=== PATIENT | female | born 1960 | race Caucasian/White ===

== ENCOUNTER 2016-07-30 13:46 | Emergency (ER) | payer BC ==
[~2016-07-30] VITALS: Ht 157.5 cm; Wt 47.0 kg
[2016-07-30 13:50] VITALS: Ht 157.5 cm; Wt 47.0 kg
[2016-07-30] MEDS ORDERED: ACETAMINOPHEN 500 MG TAB PO STA (14:30)
[2016-07-30 15:07] LABS: ADD SCAN DIFF NO
[2016-07-30 15:11] LABS: BASOPHILS % 0.3 % (0.0-2.0); EOSINOPHILS # 0.1 10^3/ul (0.0-0.5); EOSINOPHILS % 0.6 % (0.0-7.0); HEMATOCRIT 43.4 % (37.0-47.0); HEMOGLOBIN 14.6 g/dl (12.0-16.0); LYMPHOCYTES # 2.7 10^3/ul (0.8-2.9); LYMPHOCYTES % 18.4 % (15.0-51.0); MEAN CORPUSCULAR HEMOGLOBIN 29.9 pg (29.0-33.0); MEAN CORPUSCULAR HGB CONC 33.6 g/dl (32.0-37.0); MEAN CORPUSCULAR VOLUME 88.9 fl (82.0-101.0); MEAN PLATELET VOLUME 9.5 fl (7.4-10.4); MONOCYTE # 0.9 10^3/ul (0.3-0.9); MONOCYTES % 6.3 % (0.0-11.0); NEUTROPHIL # 10.8 10^3/ul (1.6-7.5); NEUTROPHILS % 74.1 % (39.0-77.0); PLATELET COUNT 277 10^3/UL (140-415); RED BLOOD COUNT 4.88 10^6/ul (4.20-5.40); RED CELL DISTRIBUTION WIDTH 12.7 % (11.5-14.5); WHITE BLOOD COUNT 14.5 10^3/ul (4.8-10.8)
[2016-07-30 15:23] LABS: ADD UMIC YES; URINE BILIRUBIN (Dip) NEGATIVE (NEGATIVE); URINE BLOOD (Dip) 2+ (NEGATIVE); URINE COLOR LT. YELLOW (YELLOW); URINE GLUCOSE (Dip) NEGATIVE (NEGATIVE); URINE KETONES (Dip) NEGATIVE (NEGATIVE); URINE LEUKOCYTE ESTERASE (Dip) NEGATIVE (NEGATIVE); URINE NITRITE (Dip) NEGATIVE (NEGATIVE); URINE TOTAL PROTEIN (Dip) NEGATIVE (NEGATIVE); URINE UROBILINOGEN (Dip) 0.2 E.U./dL (0.1-1.0)
[2016-07-30 15:36] LABS: ALBUMIN 4.8 g/dl (3.3-4.9); ALBUMIN/GLOBULIN RATIO 1.17; BILIRUBIN,INDIRECT 0.6 mg/dl (0-1.1); BILIRUBIN,TOTAL 0.6 mg/dl (0.2-1.3); CALCIUM 10.3 mg/dl (8.4-10.2); CREATININE 0.62 mg/dl (0.44-1.00); TOTAL PROTEIN 8.9 g/dl (6.1-8.1)
[2016-07-30 15:37] LABS: SQUAMOUS EPITHELIAL CELL,UR RARE; URINE RBCS 0-2 /HPF (0)
[2016-07-30 15:38] LABS: MUCUS,URINE FEW
[2016-07-30] MEDS ORDERED: IOHEXOL 300MG/ML 150 ML BTL ONE (16:25)
[2016-07-30] MEDS ORDERED: SOD CHLORIDE 0.9% 100 ML ONE (16:25)
--- NOTE | 2016-07-30 17:04 | RADRPT ---
PROCEDURE: CT Abdomen and Pelvis with contrast. CLINICAL INDICATION: Abdominal pain TECHNIQUE: CT scan of the abdomen and pelvis with contrast was performed on a multidetector high-r esolution CT scanner. Coronal and sagittal reformatted images were obtained from the axial source im ages. Images were reviewed on a high-resolution PACS workstation. 80 cc of Isovue 300 iodinated cont rast was administered intravenously without reported complication. The total exam CTDI equals 5 mGy and the total exam DLP equals 249 mGy-cm. One or more of the following dose reduction techniques w ere used: Automated exposure control, Adjustment of the mA and/or kV according to patient size, and/ or use of iterative reconstruction technique. COMPARISON: None. FINDINGS: The lung bases are clear. No suspicious hepatic mass identified. The portal vein is patent. Gallbladder wall thickening is s een. No evidence of pancreatic ductal dilatation. The spleen and adrenals are unremarkable. Sub-c entimeter low density lesions within the kidneys bilaterally are too small to characterize but possi etienne small renal cysts. No hydronephrosis. No obstructing renal stone. No bowel obstruction. Normal-caliber appendix. Descending colonic wall thickening with pericolonic i nflammatory stranding. There is mild adjacent ascites without well-defined drainable rim-enhancing f luid collection. No significant retroperitoneal lymphadenopathy or evidence of pneumoperitoneum. Calcifications in the region of the anterior uterine body may be due to postoperative change or smal l calcified fibroids. Cystic structures are seen expanding the bilateral S1 foramen which may be related to prominent julisa neural cysts. IMPRESSION: Acute descending colitis. No drainable abscess or pneumoperitoneum. No evidence of bowel obstruction. Normal-caliber appendix. Nonspecific gallbladder wall thickening. If warranted, consider ultrasound for further characteriza tion RPTAT: AA .Jose Gutierrez MD, MD Date Time Electronically viewed and signed by .Jose Gutierrez MD, on 07/30/2016 17:04 .T/
[2016-07-30] MEDS ORDERED: DICLOFENAC SODIUM 37.5 MG/ML VIAL IV STA (17:08)
[2016-07-30] MEDS ORDERED: CIPROFLOXACIN 400MG/D5W 200 ML IVPB ONE (17:30)
[2016-07-30] MEDS ORDERED: metroNIDAZOLE 500 MG/NS (PMX) 100 ML IVPB ONE (17:30)
[2016-07-30] MEDS ORDERED: METR500T PO (17:49)
[2016-07-30] MEDS ORDERED: CIPR500T4 PO (17:49)
[2016-07-30] MEDS ORDERED: ACET500C5 PO (17:49)
--- NOTE | 2016-07-30 17:58 | ERD ---
ER Documentation Chief Complaint Date/Time DATE: 07/30/16 TIME: 17:56 Chief Complaint LT SIDE ABD PAIN X2 DAYS HPI This 55-year-old female sent by primary doctor for 2 day history of pain in the left lower quadrant with possible fevers. She denies dysuria, vomiting, nausea. She denies any history of surgeries previous similar issues. She is having normal bowel movements ROS All systems reviewed and are negative except as per history of present illness. Medications Home Meds Active Scripts Acetaminophen* (Tylophen*) 500 Mg Capsule, 1 CAP PO Q6H Y for PAIN AND OR ELEVATED TEMP, #15 CAP Prov:DRIK BARRIOS MD 07/30/16 Metronidazole* (Flagyl*) 500 Mg Tablet, 500 MG PO TID for 7 Days, TAB Prov:DIRK BARRIOS MD 07/30/16 Ciprofloxacin Hcl* (Ciprofloxacin Hcl*) 500 Mg Tablet, 500 MG PO BID for 7 Days , TAB Prov:DIRK BARRIOS MD 07/30/16 Allergies Allergies: Coded Allergies: No Known Allergy (Unverified , 07/30/16) PMhx/Soc Hx Miscellaneous Medical Probl: Yes (mono) Hx Alcohol Use: No Hx Substance Use: No Hx Tobacco Use: No Smoking Status: Never smoker Physical Exam Vitals Vital Signs Date Time Temp Pulse Resp B/P Pulse Ox O2 Delivery O2 Flow Rate FiO2 07/30/16 13:50 97.1 98 16 109/66 98 Physical Exam Const: [] Alert, [id number]. Head: Atraumatic Eyes: Normal Conjunctiva ENT: Normal External Ears, Nose and Mouth. Neck: Full range of motion..~ No meningismus. Resp: Clear to auscultation bilaterally Cardio: Regular rate and rhythm, no murmurs Abd: Soft, tender in the left mid quadrant abdomen without rebound. There is no tenderness at McBurney's point no Tai sign., non distended. Normal bowel sounds Skin: No petechiae or rashes Back: No midline or flank tenderness Ext: No cyanosis, or edema Neur: Awake and alert Psych: Normal Mood and Affect Result Diagram: 07/30/16 1500 07/30/16 1500 Results 24 hrs Laboratory Tests Test 07/30/16 15:00 White Blood Count 14.510^3/ul Red Blood Count 4.8810^6/ul Hemoglobin 14.6g/dl Hematocrit 43.4% Mean Corpuscular Volume 88.9fl Mean Corpuscular Hemoglobin 29.9pg Mean Corpuscular Hemoglobin Concent 33.6g/dl Red Cell Distribution Width 12.7% Platelet Count 73697^3/UL Mean Platelet Volume 9.5fl Neutrophils % 74.1% Lymphocytes % 18.4% Monocytes % 6.3% Eosinophils % 0.6% Basophils % 0.3% Nucleated Red Blood Cells % 0.0/100WBC Neutrophils # 10.810^3/ul Lymphocytes # 2.710^3/ul Monocytes # 0.910^3/ul Eosinophils # 0.110^3/ul Basophils # 0.010^3/ul Nucleated Red Blood Cells # 0.010^3/ul Urine Color LT. YELLOW Urine Clarity CLEAR Urine pH 5.0 Urine Specific Bryan >=1.030 Urine Ketones NEGATIVE Urine Nitrite NEGATIVE Urine Bilirubin NEGATIVE Urine Urobilinogen 0.2 E.U./dL Urine Leukocyte Esterase NEGATIVE Urine Microscopic RBC 0-2/HPF Urine Microscopic WBC 0-2/HPF Urine Squamous Epithelial Cells RARE Urine Mucus FEW Urine Hemoglobin 2+ Urine Glucose NEGATIVE% Urine Total Protein NEGATIVE Sodium Level 137mmol/L Potassium Level 4.0mmol/L Chloride Level 100mmol/L Carbon Dioxide Level 26mmol/L Anion Gap 15 Blood Urea Nitrogen 17mg/dl Creatinine 0.62mg/dl Glucose Level 101mg/dl Calcium Level 10.3mg/dl Total Bilirubin 0.6mg/dl Direct Bilirubin 0.00mg/dl Indirect Bilirubin 0.6mg/dl Aspartate Amino Transf (AST/SGOT) 25IU/L Alanine Aminotransferase (ALT/SGPT) 25IU/L Alkaline Phosphatase 105IU/L Total Protein 8.9g/dl Albumin 4.8g/dl Globulin 4.10g/dl Albumin/Globulin Ratio 1.17 Lipase 81U/L Current Medications Medications (Trade) Dose Ordered Sig/Ivan Route PRN Reason Start Time Stop Time Status Last Admin Dose Admin Acetaminophen (Tylenol Tab) 500 mg ONCE STAT PO 07/30/16 14:30 07/30/16 14:32 DC IV Flush 10 ml 10 ml STK-MED ONCE .ROUTE 07/30/16 16:25 07/30/16 16:26 DC 07/30/16 16:40 Sodium Chloride (NS) 100 ml @ ud STK-MED ONCE .ROUTE 07/30/16 16:25 07/30/16 16:26 DC 07/30/16 16:40 Iohexol (Omnipaque 300mg/ ml) 150 ml STK-MED ONCE .ROUTE 07/30/16 16:25 07/30/16 16:26 DC 07/30/16 16:40 Diclofenac Sodium 37.5 mg 37.5 mg ONCE STAT IV 07/30/16 17:08 07/30/16 17:14 DC 07/30/16 17:24 Ciprofloxacin/ Dextrose 200 ml @ 200 mls/hr ONCE ONCE IVPB 07/30/16 17:30 07/30/16 18:29 07/30/16 17:34 Metronidazole (Flagyl 500 Mg (Pmx)) 100 ml @ 100 mls/hr ONCE ONCE IVPB 07/30/16 17:30 07/30/16 18:29 Procedures/MDM Urine shows 2+ hemoglobin without findings of leukocytes, nitrites or glucose. CBC shows leukocytosis of 14.5 with no anemia. CMP is normal lipase is normal. CT abdomen pelvis with IV contrast shows colitis of the sigmoid colon or descending colon without abscess, perforation, appendicitis, additional acute findings. There is some nonspecific thickening of the gallbladder wall but this is not in the area of pain. Patient was given DYLOJECT 37.5 mg IV, Cipro 400 mg IV and Flagyl 500 mg IV. Patient has left lower quadrant pain for 2 days with signs of colitis on CT. She will treated with Cipro and Flagyl at home as well as Tylenol instructions for bland diet instructions to follow-up with primary doctor this week. She is otherwise return to ER for blood, vomiting, new worsening symptoms or primary care doctor. The patient was stable with no new complaints during the ER course. Clinically, there is no current evidence to suggest meningitis, sepsis, acute abdomen, pneumonia, acute coronary syndrome, pulmonary embolism, or any other emergent condition appearing to require further evaluation or hospitalization. The patient should certainly return for any new or worsening symptoms per the aftercare instructions. They should otherwise follow-up with her primary care doctor for reevaluation this week. Departure Diagnosis: Primary Impression: Colitis Additional Impression: Abdominal pain Abdominal location: unspecified location Qualified Code: R10.9 - Abdominal pain, unspecified location Condition: Stable Patient Instructions: Abdominal Pain, Bacterial Gastroenteritis Additional Instructions: CT scan shows colitis in the area of pain. Recheck for vomiting, blood, worsening pain, new worsening symptoms in the next 1-2 days or with primary care doctor this week. DIRK BARRIOS MD Jul 30, 2016 17:58
[2016-07-30 19:46] VITALS: BP 109/64; PULSE 72; RESP 16
== END 2016-07-30 19:48 | disposition home or self-care (01) ==
LOC: FTE 13:46
DX: K52.9 Noninfective gastroenteritis and colitis, unspecified (principal)
CPT/HCPCS: 36415; 74177; 80053; 81001; 83690; 85025; 96374; 96375; 99285; J0744; Q9967; 81003